=== PATIENT | female | born 1965 ===

== ENCOUNTER 2016-12-11 08:47 | Emergency (ER) | payer MEDICAID, SELFPAY ==
[2016-12-11 08:59] VITALS: PULSE 87; TEMP 98.1; O2SAT 98; BMI 29.9
[2016-12-11 09:06] VITALS: RESP 18
[2016-12-11] MEDS ORDERED: Sodium Chloride 0.9% 1,000 ML IV STA (09:09)
--- NOTE | 2016-12-11 09:23 | ED PDOC ---
HPI: Abdomen Time Seen by Provider: 12/11/16 08:52 Chief Complaint (Nursing): Abdominal Pain Chief Complaint (Provider): Abdominal Pain History Per: Patient History/Exam Limitations: no limitations Current Symptoms Are (Timing): Still Present Additional Complaint(s): 51 y/o female with a past medical history of diabetes, hypertension, and hypothyroidism who presents to the emergency department with a complaint of a mid-epigastric abdominal pain described as burning since midnight. Associated with nausea. Denies vomiting, diarrhea, or fever. PMD: Dr. Alyssa Penny MD Past Medical History Reviewed: Historical Data, Nursing Documentation, Vital Signs Vital Signs: Last Vital Signs Temp 98.1 F 12/11/16 08:58 Pulse 87 12/11/16 08:58 Resp 18 12/11/16 09:04 BP 155/91 H 12/11/16 08:58 Pulse Ox 98 12/11/16 09:51 - Medical History PMH: Diabetes, HTN, Hypercholesterolemia, Hypothyroidism - Surgical History Surgical History: No Surg Hx - Family History Family History: States: Unknown Family Hx - Social History Current smoker - smoking cessation education provided: No Alcohol: None Drugs: Denies - Home Medications Home Medications: Ambulatory Orders Medication Instructions Recorded Amoxicillin/Clavulanate [Augmentin 1 tab PO BID #20 tab 09/06/15 875 MG-125 MG] Clotrimazole 1% Cream [Lotrimin 1% 15 applic EXT BID #1 tube 12/12/15 CREAM] Naproxen [Naprosyn] 500 mg PO Q12 PRN #20 tablet 03/22/16 Famotidine [Pepcid] 20 mg PO Q12 #20 tab 12/11/16 Ondansetron [Zofran] 4 mg PO Q8H #10 tab 12/11/16 - Allergies Allergies/Adverse Reactions: Allergies Allergy/AdvReac Type Severity Reaction Status Date / Time No Known Allergies Allergy Verified 12/11/16 09:04 Review of Systems ROS Statement: Except As Marked, All Systems Reviewed And Found Negative Constitutional: Negative for: Fever Gastrointestinal: Positive for: Nausea, Abdominal Pain (Epigastric). Negative for: Vomiting, Diarrhea Physical Exam - Reviewed Nursing Documentation Reviewed: Yes Vital Signs Reviewed: Yes - Physical Exam Appears: Positive for: Non-toxic, No Acute Distress Head Exam: Positive for: ATRAUMATIC, NORMAL INSPECTION, NORMOCEPHALIC Skin: Positive for: Normal Color, Warm, Dry Cardiovascular/Chest: Positive for: Regular Rate, Rhythm. Negative for: Murmur Respiratory: Positive for: Normal Breath Sounds. Negative for: Accessory Muscle Use, Respiratory Distress Gastrointestinal/Abdominal: Positive for: Bowel Sounds (Present), Soft, Tenderness (Mid epigastric tenderness). Negative for: Normal Exam Back: Positive for: Normal Inspection. Negative for: L CVA Tenderness, R CVA Tenderness Neurologic/Psych: Positive for: Alert, Oriented (x3) - Laboratory Results Result Diagrams: 12/11/16 09:15 12/11/16 09:15 - ECG O2 Sat by Pulse Oximetry: 98 (RA) Pulse Ox Interpretation: Normal - Progress Re-evaluation Time: 10:45 Condition: Improved (No abd pain or nausea) Medical Decision Making Medical Decision Making: Time: 09:09 Initial Impression: Abdominal pain Initial Plan: --CMP --Urine Preg & DIP --CBC w/ diff --Pepcid 20 mg IVP --Zofran 4 mg IVP --Sodium Chloride 100 mls/hr IV --Reevaluation Time: 09:32 --Bentyl 10 mg PO --Pepcid 20 mg IVP --Zofran 4 mg PO Scribe Attestation: Documented by Marina Peters, acting as a scribe for Chacorta Nguyen MD. Provider Scribe Attestation: All medical record entries made by the Scribe were at my direction and personally dictated by me. I have reviewed the chart and agree that the record accurately reflects my personal performance of the history, physical exam, medical decision making, and the department course for this patient. I have also personally directed, reviewed, and agree with the discharge instructions and disposition. Disposition - Clinical Impression Clinical Impression: Gastritis - Patient ED Disposition Is Patient to be Admitted: No Counseled Patient/Family Regarding: Studies Performed, Diagnosis, Need For Followup, Rx Given - Disposition Referrals: [facility] [Outside] Disposition: Routine/Home Disposition Time: 10:46 Condition: FAIR Prescriptions: Famotidine [Pepcid] 20 mg PO Q12 #20 tab Ondansetron [Zofran] 4 mg PO Q8H #10 tab Instructions: Gastritis (ED) Forms: [employer] (Portuguese) Print Language: PASHTO
[2016-12-11 09:52] LABS: BASO # 0.1 K/uL (0.0-0.2); BASO % 0.7 % (0.0-2.0); EOS # 0.1 K/uL (0.0-0.7); EOS % 0.7 % (0.0-4.0); HEMATOCRIT 41.1 % (34.0-47.0); LYMPH # 3.4 K/uL (1.0-4.3); LYMPH % 24.8 % (20.0-40.0); MEAN CELL VOLUME 79.9 fl (81.0-99.0); MEAN CORPUSCULAR HEMOGLOBIN 26.1 pg (27.0-31.0); MEAN CORPUSCULAR HGB CONC 32.6 g/dL (33.0-37.0); MEAN PLATELET VOLUME 7.3 fl (7.2-11.7); MONO # 0.8 K/uL (0.0-0.8); MONO % 5.5 % (0.0-10.0); NEUT # 9.4 K/uL (1.8-7.0); NEUT % 68.3 % (50.0-75.0); NRBC % 0.1 % (0.0-0.0); RED CELL DISTRIBUTION WIDTH 13.7 % (11.5-14.5); WHITE BLOOD COUNT 13.8 K/uL (4.8-10.8)
[2016-12-11 10:00] LABS: ALB/GLOB RATIO 1.2 (1.0-2.1); ALKALINE PHOSPHATASE 152 U/L (38-126); ALT/SGPT 29 U/L (9-52); AST/SGOT 56 U/L (14-36); BLOOD UREA NITROGEN 16 mg/dl (7-17); CARBON DIOXIDE 23 mmol/L (22-30); CHLORIDE 102 mmol/L (98-107); GFR AFRICAN-AMERICAN > 60; GLUCOSE,RANDOM 286 mg/dL (65-105); SODIUM 137 mmol/l (132-148); TOTAL PROTEIN 7.9 G/DL (6.3-8.2)
[2016-12-11 11:02] VITALS: BP 144/84
== END 2016-12-11 11:01 | disposition home or self-care (01) ==
LOC: H.ER 08:47
DX: K29.70 Gastritis, unspecified, without bleeding (principal); E11.9 Type 2 diabetes mellitus without complications; E03.9 Hypothyroidism, unspecified; E78.00 Pure hypercholesterolemia, unspecified; I10 Essential (primary) hypertension

== ENCOUNTER 2017-08-09 21:07 | Emergency (ER) | payer MEDICAID, OTHER ==
[2017-08-09 21:07] VITALS: BMI 29.9
[2017-08-09 21:19] VITALS: O2SAT 98
[2017-08-09] MEDS ORDERED: Famotidine 20mg/50ml Premix IVPB STA (21:53)
[2017-08-09] MEDS ORDERED: Sodium Chloride 0.9% 1,000 ML IV SCH (22:00)
[2017-08-09] MEDS ORDERED: Famotidine 20mg/50ml 40 MG/100 ML BAG IVPB ONE (22:00)
[2017-08-09 22:24] LABS: BASO # 0.1 K/uL (0.0-0.2); BASO % 0.8 % (0.0-2.0); EOS # 0.1 K/uL (0.0-0.7); EOS % 0.7 % (0.0-4.0); HEMOGLOBIN 12.8 g/dL (12.0-16.0); LYMPH % 28.3 % (20.0-40.0); MEAN CELL VOLUME 80.8 fl (81.0-99.0); MEAN CORPUSCULAR HEMOGLOBIN 27.2 pg (27.0-31.0); MEAN CORPUSCULAR HGB CONC 33.7 g/dL (33.0-37.0); MEAN PLATELET VOLUME 7.3 fl (7.2-11.7); MONO # 0.7 K/uL (0.0-0.8); MONO % 5.1 % (0.0-10.0); NEUT # 9.1 K/uL (1.8-7.0); NEUT % 65.1 % (50.0-75.0); NRBC % 0.1 % (0.0-0.0); RBC 4.71 Mil/uL (3.80-5.20); RED CELL DISTRIBUTION WIDTH 14.2 % (11.5-14.5)
[2017-08-09 22:27] LABS: SQUAMOUS EPITHIAL 2 /hpf (0-5); URINE BACTERIA RARE (<OCC); URINE BILIRUBIN NEGATIVE (NEGATIVE); URINE BLOOD NEGATIVE (NEGATIVE); URINE CLARITY SLIGHTY-CLOUDY (Clear); URINE COLOR YELLOW (YELLOW); URINE GLUCOSE (UA) >=500 mg/dL (Normal); URINE LEUKOCYTE ESTERASE NEG Leu/uL (Negative); URINE PROTEIN NEGATIVE (NEGATIVE); URINE UROBILINOGEN 0.2-1.0 mg/dL (0.2-1.0)
[2017-08-09 22:55] LABS: ALB/GLOB RATIO 1.2 (1.0-2.1); ALBUMIN 3.8 g/dL (3.5-5.0); CALCIUM 8.6 mg/dL (8.4-10.2); GFR AFRICAN-AMERICAN > 60; GFR NON-AFRICAN AMERICAN > 60; LIPASE 161 U/L (23-300)
[2017-08-09] MEDS ORDERED: Insulin Regular 100 units/ml IV STA (23:01)
--- NOTE | 2017-08-09 23:01 | ED PDOC ---
HPI: Abdomen Time Seen by Provider: 08/09/17 21:26 Chief Complaint (Nursing): Abdominal Pain Chief Complaint (Provider): Abdominal Pain History Per: Patient History/Exam Limitations: no limitations, language barrier (sled maker Anne-Marie translated from Surinamese) Onset/Duration Of Symptoms: Hrs Current Symptoms Are (Timing): Still Present Location Of Pain/Discomfort: Other (mid and right upper abdominal pain ) Associated Symptoms: Nausea. denies: Fever, Vomiting, Diarrhea, Urinary Symptoms Additional Complaint(s): 51 year old female with a past medical history of diabetes, HTN, hyperthyroidism , elevated cholesterol, presents to the ED for evaluation of mid upper and right upper abdominal pain for the past 5 hours after eating a meal of rice, salad, and beef at home. Patient report pain is a cramping pain that comes and goes every 10 minutes and is an 8/10 when present. Pain radiates to back and is associated with nausea. Patient states she has a history of h pylori infection and was on a course of antibiotics 3 months ago that she completed. No medications were given prior to arrival. Denies fever, vomit, diarrhea, urinary symptom, flank pain, chest pain, dizziness, palpitations, headache, and recent travel. LNMP: 27 year ago s/p hysterectomy PMD: Alyssa Penny Past Medical History Reviewed: Historical Data, Nursing Documentation, Vital Signs Vital Signs: Last Vital Signs Temp 98.1 F 08/10/17 00:24 Pulse 83 08/10/17 00:24 Resp 17 08/10/17 00:24 BP 131/75 08/10/17 00:24 Pulse Ox 98 08/14/17 11:16 - Medical History PMH: Diabetes, HTN, Hypercholesterolemia, Hypothyroidism - Surgical History Other surgeries: Hysterectomy, Both Knee ligament surgery - Family History Family History: States: Unknown Family Hx - Social History Current smoker - smoking cessation education provided: No Alcohol: None Drugs: Denies - Home Medications Home Medications: Ambulatory Orders Medication Instructions Recorded Amoxicillin/Clavulanate [Augmentin 1 tab PO BID #20 tab 09/06/15 875 MG-125 MG] Clotrimazole 1% Cream [Lotrimin 1% 15 applic EXT BID #1 tube 12/12/15 CREAM] Naproxen [Naprosyn] 500 mg PO Q12 PRN #20 tablet 03/22/16 Famotidine [Pepcid] 20 mg PO Q12 #20 tab 12/11/16 Ondansetron [Zofran] 4 mg PO Q8H #10 tab 12/11/16 Famotidine [Pepcid] 40 mg PO DAILY #10 tablet 08/10/17 - Allergies Allergies/Adverse Reactions: Allergies Allergy/AdvReac Type Severity Reaction Status Date / Time No Known Allergies Allergy Verified 12/11/16 09:04 Review of Systems ROS Statement: Except As Marked, All Systems Reviewed And Found Negative Constitutional: Negative for: Fever Gastrointestinal: Positive for: Nausea, Abdominal Pain (mid and upper right abdominal pain ). Negative for: Vomiting, Diarrhea Physical Exam - Reviewed Nursing Documentation Reviewed: Yes Vital Signs Reviewed: Yes - Physical Exam Comments: GENERAL APPEARANCE: Patient is awake, alert, oriented x 3, in no acute distress. Uncomfortable. SKIN: Warm, dry; (-) cyanosis. EYES: (-) conjunctival pallor, (-) scleral icterus. ENMT: Mucous membranes moist. NECK: Supple, FROM (-) tenderness, (-) stiffness, (-) lymphadenopathy. CHEST AND RESPIRATORY: (-) rales, (-) rhonchi, (-) wheezes; breath sounds equal bilaterally. Speaking in full sentences, respirations even and nonlabored. HEART AND CARDIOVASCULAR: (-) irregularity; (-) murmur, (-) gallop. ABDOMEN AND GI: (-) distention. Bowel sounds active x4; right upper quadrant and epigastric tenderness to deep palpation. (-) guarding, (-) rebound, (-) palpable masses, (-) CVA tenderness. (-) Mcburney's , (-) Rovsings (+) Bustos's EXTREMITIES: (-) deformity, (-) edema, (+) distal pulses. NEURO AND PSYCH: Mental status as above; (-) focal findings. EOMI and painless. Pupils equal and reactive. Gait steady, speech clear. - Laboratory Results Result Diagrams: 08/09/17 22:10 08/09/17 22:10 Urine POC: Negative - ECG O2 Sat by Pulse Oximetry: 98 (RA) Pulse Ox Interpretation: Normal Medical Decision Making Medical Decision Making: Time: 2209 Impression: Abdominal pain, rule out biliary disease Plan: -- IV access -- CMP -- Lipase -- CBC with differentials -- Urine Culture -- Urinalysis -- Abdomen Complete US -- Toradol -- Pepcid -- Zofran -- NS 1L 2300 Labs reviewed, elevated blood sugar noted at 348 with >500 in urine. WBC: 14. 8 units insulin IV ordered. Patient admits to being noncompliant with DM medications. Patient states she is supposed to take Metformin and Glyburide BID, however only takes both medications once in the morning. Patient educated on effects of elevated blood sugar and compliance with medications stressed to patient with demonstrated understanding. 2350 U/S reviewed, radiology report follows EXAM: US Abdomen Complete CLINICAL HISTORY: 51 years old, female; Pain; Abdominal pain; Epigastric; Additional info: Ruq and epigastric pain TECHNIQUE: Real-time ultrasound of the abdomen (complete) with image documentation. COMPARISON: No relevant prior studies available. FINDINGS: Liver: Fatty infiltration. No mass. No intrahepatic ductal dilatation. Gallbladder: Contracted. No gallstones. No wall thickening. No pericholecystic fluid. No sonographic Bustos's sign. Common bile duct: No dilatation. No stones. Pancreas: Unremarkable as visualized. Kidneys: Normal echogenicity. No hydronephrosis. Spleen: No splenomegaly. Aorta: Unremarkable. No aneurysm. Inferior vena cava: Unremarkable. Free fluid: No significant free fluid. IMPRESSION: 1. No acute findings. 2. Non-acute findings are described above. Thank you for allowing us to participate in the care of your patient. Dictated and Authenticated by: José Torrez MD 08/09/2017 11:43 PM Eastern Time ([place] & [place]) 0015 Accucheck: 174 On exam, patient remains AAOx3, in no acute distress and reports complete resolution of presenting symptoms. On exam, neck is supple, lungs CTA, cardiac RRR, abdomen is soft and non-tender, neuro exam shows no focal findings. VSS, stable for discharge. Diagnostic/lab results d/w the patient in great detail. Dx of abdominal pain, dyspepsia, elevated blood sugar d/w the patient. Based on history, exam and diagnostic results plan will be for discharge and outpatient follow up. Advised to follow up with primary care physician/clinic in 1-2 days without fail. Advised to take medication as prescribed. Return to the emergency room at any time for any new or worsening symptoms. Patient states she fully agrees with and understands discharge instructions. States that she agrees with the plan and disposition. Verbalized and repeated discharge instructions and plan. I have given the patient opportunity to ask any additional questions. Scribe Attestation: Documented by Yany Bangura, acting as a scribe for Sarah Zaman PA-C. Provider Scribe Attestation: All medical record entries made by the Scribe were at my direction and personally dictated by me. I have reviewed the chart and agree that the record accurately reflects my personal performance of the history, physical exam, medical decision making, and the department course for this patient. I have also personally directed, reviewed, and agree with the discharge instructions and disposition. Disposition - Clinical Impression Clinical Impression: Abdominal discomfort, Nausea alone, Elevated blood sugar, Dyspepsia - Patient ED Disposition Is Patient to be Admitted: No Counseled Patient/Family Regarding: Studies Performed, Diagnosis, Need For Followup, Rx Given - Disposition Referrals: Alyssa Penny MD [Family Provider] - Disposition: Routine/Home Disposition Time: 00:17 Condition: STABLE Additional Instructions: FOLLOW UP WITH PMD IN 1-2 DAYS WITHOUT FAIL FOR FURTHER EVALUATION OF BLOOD SUGAR/DM. RETURN TO ED WITH ANY NEW OR WORSENING SYMPTOMS. Prescriptions: Famotidine [Pepcid] 40 mg PO DAILY #10 tablet Instructions: Dyspepsia, Acute Abdomen (Belly Pain), Blood Glucose Monitoring, The ABCs of Diabetes, Diabetes and Diet Forms: [facility] (Surinamese) Print Language: WOLOF - MANDIA Present On Arrival: Poor Glycemic Control Results - Lab Results Lab Results: 08/10/17 08/09/17 08/09/17 00:29 23:05 22:10 WBC RBC Hgb Hct MCV MCH MCHC RDW Plt Count MPV Neut % (Auto) Lymph % (Auto) [place] % (Auto) Eos % (Auto) Baso % (Auto) Neut # (Auto) Lymph # (Auto) [place] # (Auto) Eos # (Auto) Baso # (Auto) Sodium Potassium Chloride Carbon Dioxide Anion Gap BUN Creatinine Est GFR ( Amer) Est GFR (Non-Af Amer) POC Glucose (mg/dL) 174 H 287 H Random Glucose Calcium Total Bilirubin AST ALT Alkaline Phosphatase Total Protein Albumin Globulin Albumin/Globulin Ratio Lipase Urine Color Yellow Urine Clarity Slighty-cloudy Urine pH 6.0 Ur Specific [place] 1.037 H Urine Protein Negative Urine Glucose (UA) >=500 Urine Ketones Negative Urine Blood Negative Urine Nitrate Negative Urine Bilirubin Negative Urine Urobilinogen 0.2-1.0 Ur Leukocyte Esterase Neg Urine RBC (Auto) 1 Urine Microscopic WBC < 1 Ur Squamous Epith Cells 2 Urine Bacteria Rare 08/09/17 08/09/17 22:10 22:10 WBC 14.0 H RBC 4.71 Hgb 12.8 Hct 38.1 MCV 80.8 L MCH 27.2 MCHC 33.7 RDW 14.2 Plt Count 296 MPV 7.3 Neut % (Auto) 65.1 Lymph % (Auto) 28.3 [place] % (Auto) 5.1 Eos % (Auto) 0.7 Baso % (Auto) 0.8 Neut # (Auto) 9.1 H Lymph # (Auto) 4.0 [place] # (Auto) 0.7 Eos # (Auto) 0.1 Baso # (Auto) 0.1 Sodium 135 Potassium 4.2 Chloride 97 L Carbon Dioxide 25 Anion Gap 17 BUN 17 Creatinine 0.6 L Est GFR ( Amer) > 60 Est GFR (Non-Af Amer) > 60 POC Glucose (mg/dL) Random Glucose 348 H Calcium 8.6 Total Bilirubin 0.4 AST 28 ALT 35 Alkaline Phosphatase 154 H Total Protein 7.0 Albumin 3.8 Globulin 3.2 Albumin/Globulin Ratio 1.2 Lipase 161 Urine Color Urine Clarity Urine pH Ur Specific [place] Urine Protein Urine Glucose (UA) Urine Ketones Urine Blood Urine Nitrate Urine Bilirubin Urine Urobilinogen Ur Leukocyte Esterase Urine RBC (Auto) Urine Microscopic WBC Ur Squamous Epith Cells Urine Bacteria
[2017-08-09 23:05] LABS: ALT/SGPT 35 U/L (9-52); AST/SGOT 28 U/L (14-36)
[2017-08-09 23:07] LABS: BLOOD UREA NITROGEN 17 mg/dl (7-17)
[2017-08-09] MEDS ORDERED: Insulin Regular 100 units/ml ONE (23:10)
--- NOTE | 2017-08-09 23:44 | US ---
EXAM: US Abdomen Complete CLINICAL HISTORY: 51 years old, female; Pain; Abdominal pain; Epigastric; Additional info: Ruq and epigastric pain TECHNIQUE: Real-time ultrasound of the abdomen (complete) with image documentation. COMPARISON: No relevant prior studies available. FINDINGS: Liver: Fatty infiltration. No mass. No intrahepatic ductal dilatation. Gallbladder: Contracted. No gallstones. No wall thickening. No pericholecystic fluid. No sonographic Bustos's sign. Common bile duct: No dilatation. No stones. Pancreas: Unremarkable as visualized. Kidneys: Normal echogenicity. No hydronephrosis. Spleen: No splenomegaly. Aorta: Unremarkable. No aneurysm. Inferior vena cava: Unremarkable. Free fluid: No significant free fluid. IMPRESSION: 1.No acute findings. 2.Non-acute findings are described above.
[2017-08-10 00:41] VITALS: BP 131/75; PULSE 83; RESP 17; TEMP 98.1
== END 2017-08-10 00:35 | disposition home or self-care (01) ==
LOC: H.ER 21:07
DX: R10.11 Right upper quadrant pain (principal); R11.0 Nausea; E11.65 Type 2 diabetes mellitus with hyperglycemia
CPT/HCPCS: 76700; 80053; 81003; 81025; 82948; 83690; 85025; 87086; 96365; 96375; 99284; J1885; J7040